=== PATIENT | female | born 1955 | race Caucasian/White ===

== ENCOUNTER 2021-02-10 10:56 | Emergency (ER) | payer OTHER ==
[2021-02-11 13:08] LABS: SARS-CoV-2 NAA Not Detected (Not Detected)
== END 2021-02-10 12:09 | disposition home or self-care (01) ==
LOC: JVIRT 10:56
DX: G44.89 Other headache syndrome (principal); Z20.822 Contact with and (suspected) exposure to COVID-19
CPT/HCPCS: C9803; G2251-GT; U0003; U0005